=== PATIENT | male | born 1940 | race Caucasian/White ===

== ENCOUNTER 2023-05-24 17:05 | Inpatient (IN) | payer OTHER ==
[~2023-05-24] VITALS: Ht 188 cm; Wt 145.6 kg
[2023-05-24 17:07] VITALS: BP 129/80; PULSE 88; RESP 18; TEMP 100; O2SAT 97
[2023-05-24 18:25] LABS: ANION GAP 13.3 (8-16); BASOPHILS % (AUTO) 0.2 % (0.0-2.0); CALCIUM 8.4 mg/dL (8.5-10.1); CARBON DIOXIDE 27.8 mmol/L (21-32); CHLORIDE 91 mmol/L (98-107); GLUCOSE 113 mg/dL (74-106); HEMATOCRIT 42.8 % (36-52); HEMOGLOBIN 14.6 g/dL (12.0-18.0); LYMPHOCYTES # (AUTO) 0.7 K/uL (2.0-11.5); LYMPHOCYTES % (AUTO) 7.1 % (20.5-51.1); MEAN CORPUSCULAR HEMOGLOBIN 32 pg (27-31); MEAN CORPUSCULAR HGB CONC 34 g/dL (33-37); MEAN CORPUSCULAR VOLUME 93.3 fL (80-94); MONOCYTES % (AUTO) 10.3 % (1.7-9.3); NEUTROPHILS # (AUTO) 7.6 K/uL (1.8-7.7); NEUTROPHILS % (AUTO) 82.4 % (42.2-75.2); PLATELET COUNT (AUTO) 162 K/uL (140-450); POTASSIUM 4.1 mmol/L (3.5-5.1); RED BLOOD CELL COUNT(AUTO) 4.59 MIL/uL (4.20-6.10); RED CELL DISTRIBUTION WIDTH 13.6 % (11.6-13.7); SODIUM SERUM 128 mmol/L (136-145); UREA NITROGEN, BLOOD 19 mg/dL (7-18); WHITE BLOOD COUNT (AUTO) 9.3 K/uL (4.8-10.8)
[2023-05-24 18:25] LABS: FLU A ANTIGEN negative (NEGATIVE); FLU B ANTIGEN negative (NEGATIVE)
[2023-05-24 18:27] LABS: INR 1.29 (0.8-1.2); PARTIAL THROMBOPLASTIN TIME 32.5 secs (22-35.6); PROTHROMBIN TIME 13.3 secs (10.8-13.4)
[2023-05-24 18:32] LABS: ALANINE AMINOTRANSFERASE 104 U/L (12-78); ALBUMIN 2.6 g/dL (3.4-5.0); ALKALINE PHOSPHATASE 69 U/L (50-136); ASPARTATE AMINOTRANSFERASE 96 U/L (15-37); BILIRUBIN,DIRECT 0.4 mg/dL (0.0-0.3); TOTAL PROTEIN, SERUM 6.6 g/dL (6.4-8.2)
[2023-05-24] MEDS: IPRATROPIUM 0.02% 0.5 MG/2.5 ML NEBU INH ONE (19:01)
[2023-05-24] MEDS: ALBUTEROL 0.083% 2.5 MG/3 ML NEBU INH ONE (19:01)
[2023-05-24 19:02] VITALS: PULSE 85; PULSE 86; RESP 16; O2SAT 28; O2SAT 96; O2SAT 99
[2023-05-24] MEDS: ASPIRIN 325 MG TAB PO ONE (19:03)
[2023-05-24] MEDS: LEVOFLOXACIN 750 MG/D5W PREMIX 150 ML IV ONE (19:07)
[2023-05-24] MEDS ORDERED: VANCOMYCIN 1,000 MG VIAL ONE ×2 (19:52→19:58)
[2023-05-24] MEDS: NACL 0.9% 1,000 ML IV ONE (21:16)
[2023-05-24] MEDS: VANCOMYCIN 1,000 MG in DEXTROSE 5% 250 ML IV ONE (21:17)
[2023-05-24] MEDS ORDERED: ROSU10TA1 PO (21:50)
[2023-05-24] MEDS ORDERED: METO-744 PO (21:50)
[2023-05-24] MEDS ORDERED: ATOR10TA PO (21:50)
[2023-05-24] MEDS ORDERED: INDO-323 PO (21:50)
[2023-05-24] MEDS ORDERED: BENA20TA PO (21:50)
[2023-05-25] VITALS (12 sets, daily range): BP systolic 136–156; BP diastolic 62–74; PULSE 68–95; RESP 18–22; TEMP 96.7–98.6; O2SAT 94–99
[2023-05-25] MEDS ORDERED: MORPHINE SULFATE 4 MG/ML SYR IVP PRN ×2 (00:40→00:45)
[2023-05-25] MEDS ORDERED: ONDANSETRON 4 MG/2 ML VIAL IVP PRN (00:40)
[2023-05-25] MEDS ORDERED: POTASSIUM CHLORIDE 10 MEQ TABER PO PRN ×2 (00:40→00:45)
[2023-05-25] MEDS ORDERED: HYDROcodone/APAP 5/325 MG 1 TAB TAB PO PRN ×2 (00:40→00:45)
[2023-05-25] MEDS ORDERED: ACETAMINOPHEN 325 MG TAB PO PRN ×2 (00:40→00:45)
[2023-05-25] MEDS ORDERED: MAG SULF 2000 MG/WATER PREMIX 50 ML IV PRN ×2 (00:40→00:45)
[2023-05-25] MEDS ORDERED: LEVOFLOXACIN 500 MG/D5W PREMIX 100 ML IV SCH (00:45)
[2023-05-25] MEDS: traZODone 50 MG TAB PO ONE (00:57)
[2023-05-25] MEDS ORDERED: ALBUTEROL SULFATE/IPRATROPIU 3 ML SOL IH SCH (01:00)
[2023-05-25] MEDS: ALBUTEROL SULFATE/IPRATROPIU 3 ML SOL IH SCH (02:46)
[2023-05-25 03:15] LABS: APPEARANCE,URINE SL CLOUDY (CLEAR); BILIRUBIN,URINE 1+ (NEGATIVE); BLOOD, URINE 1+ (NEGATIVE); COLOR,URINE YELLOW (YELLOW); LEUKOCYTE ESTERASE ,URINE NEGATIVE (NEGATIVE); NITRITE, URINE NEGATIVE (NEGATIVE); PROTEIN,URINE 2+ (NEGATIVE); UGLUCOSE NEGATIVE (NEGATIVE)
[2023-05-25 03:20] LABS: ICTOTEST POSITIVE (NEGATIVE)
[2023-05-25 03:21] LABS: BACTERIA,URINE 2+ /HPF (None Seen); MUCUS,URINE None Seen /LPF (None Seen); SQUAMOUS EPITHELIAL CELL,UR 0-3 (FEW) /LPF (0-3 (FEW)); WBC,URINE 0 /HPF (0-5)
[2023-05-25] MEDS: NACL 0.9% 1,000 ML IV ONE (03:42)
[2023-05-25] MEDS: hePARIN / DEXT 5% PREMIX 250 ML IV SCH (08:15)
[2023-05-25] MEDS ORDERED: HEPARIN PER PHARMACY MC SCH (09:00)
[2023-05-25] MEDS: HEPARIN PER PHARMACY MC SCH (09:00)
[2023-05-25] MEDS: BENZONATATE 100 MG CAPLF PO PRN (21:10)
[2023-05-25] MEDS: LEVOFLOXACIN 500 MG/D5W PREMIX 100 ML IV SCH (21:11)
[2023-05-25] MEDS: guaiFENesin 20 MG/ML UDC PO PRN (23:35)
[2023-05-25] MEDS: MELATONIN 3 MG TAB PO PRN (23:36)
[2023-05-26] VITALS (11 sets, daily range): BP systolic 132–150; BP diastolic 61–72; PULSE 62–89; RESP 18–22; TEMP 97.6–98.9; O2SAT 93–97
[2023-05-26 06:58] LABS: BASOPHILS % (AUTO) 0.3 % (0.0-2.0); EOSINOPHILS # (AUTO) 0.1 K/uL (0-0.4); EOSINOPHILS % (AUTO) 1.7 % (0.0-4.0); HEMATOCRIT 39.6 % (36-52); HEMOGLOBIN 13.3 g/dL (12.0-18.0); LYMPHOCYTES # (AUTO) 1.3 K/uL (2.0-11.5); LYMPHOCYTES % (AUTO) 17.4 % (20.5-51.1); MEAN CORPUSCULAR HEMOGLOBIN 31 pg (27-31); MEAN CORPUSCULAR HGB CONC 34 g/dL (33-37); MEAN CORPUSCULAR VOLUME 93.3 fL (80-94); MONOCYTES # (AUTO) 0.7 K/uL (0.8-1.0); MONOCYTES % (AUTO) 10.1 % (1.7-9.3); NEUTROPHILS # (AUTO) 5.1 K/uL (1.8-7.7); NEUTROPHILS % (AUTO) 70.5 % (42.2-75.2); PLATELET COUNT (AUTO) 184 K/uL (140-450); RED BLOOD CELL COUNT(AUTO) 4.24 MIL/uL (4.20-6.10); RED CELL DISTRIBUTION WIDTH 13.9 % (11.6-13.7); WHITE BLOOD COUNT (AUTO) 7.2 K/uL (4.8-10.8)
[2023-05-26 07:04] LABS: ANION GAP 8.8 (8-16); CALCIUM 8.5 mg/dL (8.5-10.1); CARBON DIOXIDE 30.4 mmol/L (21-32); CHLORIDE 96 mmol/L (98-107); CREATININE 0.8 mg/dL (0.6-1.3); GLUCOSE 122 mg/dL (74-106); POTASSIUM 4.2 mmol/L (3.5-5.1); SODIUM SERUM 131 mmol/L (136-145); UREA NITROGEN, BLOOD 16 mg/dL (7-18)
[2023-05-26] MEDS: ECOTRIN 81 MG TABEC PO SCH (16:42)
[2023-05-26] MEDS: ATORVASTATIN 20 MG TAB PO SCH (16:43)
[2023-05-26] MEDS: CLOPIDOGREL 75 MG TAB PO SCH (16:43)
[2023-05-26] MEDS ORDERED: DEXTROSE 50% 50 ML SYR IVP PRN (19:40)
[2023-05-26] MEDS: BLOOD GLUCOSE MONITORING 1 DEV DEV FS SCH (20:54)
[2023-05-26] MEDS: METOPROLOL 25 MG TAB PO SCH (20:55)
[2023-05-27] VITALS (8 sets, daily range): BP systolic 128–162; BP diastolic 55–85; PULSE 65–72; RESP 18–22; TEMP 97.3–97.7; O2SAT 91–100
[2023-05-27] MEDS: ONDANSETRON 4 MG/2 ML VIAL IVP PRN (01:27)
[2023-05-27 06:54] LABS: BASOPHILS % (AUTO) 0.2 % (0.0-2.0); EOSINOPHILS # (AUTO) 0.1 K/uL (0-0.4); EOSINOPHILS % (AUTO) 1.7 % (0.0-4.0); HEMATOCRIT 40.1 % (36-52); HEMOGLOBIN 13.7 g/dL (12.0-18.0); LYMPHOCYTES # (AUTO) 1.2 K/uL (2.0-11.5); LYMPHOCYTES % (AUTO) 17.5 % (20.5-51.1); MEAN CORPUSCULAR HEMOGLOBIN 32 pg (27-31); MEAN CORPUSCULAR HGB CONC 34 g/dL (33-37); MEAN CORPUSCULAR VOLUME 92.1 fL (80-94); MONOCYTES # (AUTO) 0.7 K/uL (0.8-1.0); NEUTROPHILS # (AUTO) 4.7 K/uL (1.8-7.7); NEUTROPHILS % (AUTO) 69.6 % (42.2-75.2); PLATELET COUNT (AUTO) 220 K/uL (140-450); RED BLOOD CELL COUNT(AUTO) 4.35 MIL/uL (4.20-6.10); RED CELL DISTRIBUTION WIDTH 13.8 % (11.6-13.7); WHITE BLOOD COUNT (AUTO) 6.7 K/uL (4.8-10.8)
[2023-05-27 07:29] LABS: ANION GAP 8.6 (8-16); CARBON DIOXIDE 34.7 mmol/L (21-32); CHLORIDE 96 mmol/L (98-107); CREATININE 0.8 mg/dL (0.6-1.3); GLUCOSE 111 mg/dL (74-106); POTASSIUM 4.3 mmol/L (3.5-5.1); SODIUM SERUM 135 mmol/L (136-145); UREA NITROGEN, BLOOD 15 mg/dL (7-18)
[2023-05-27] MEDS: LOSARTAN 25 MG TAB PO SCH (08:26)
[2023-05-28] VITALS (8 sets, daily range): BP systolic 134–156; BP diastolic 59–70; PULSE 60–90; RESP 18–22; TEMP 97.1–97.8; O2SAT 91–100
[2023-05-28] MEDS: BENZONATATE 100 MG CAPLF PO PRN (05:19)
[2023-05-28 06:54] LABS: BASOPHILS % (AUTO) 0.2 % (0.0-2.0); EOSINOPHILS # (AUTO) 0.2 K/uL (0-0.4); EOSINOPHILS % (AUTO) 3.5 % (0.0-4.0); HEMATOCRIT 39.6 % (36-52); HEMOGLOBIN 13.3 g/dL (12.0-18.0); LYMPHOCYTES # (AUTO) 1.6 K/uL (2.0-11.5); LYMPHOCYTES % (AUTO) 23.4 % (20.5-51.1); MEAN CORPUSCULAR HEMOGLOBIN 31 pg (27-31); MEAN CORPUSCULAR HGB CONC 34 g/dL (33-37); MEAN CORPUSCULAR VOLUME 93.3 fL (80-94); MONOCYTES # (AUTO) 0.7 K/uL (0.8-1.0); MONOCYTES % (AUTO) 10.4 % (1.7-9.3); NEUTROPHILS # (AUTO) 4.4 K/uL (1.8-7.7); NEUTROPHILS % (AUTO) 62.5 % (42.2-75.2); PLATELET COUNT (AUTO) 251 K/uL (140-450); RED BLOOD CELL COUNT(AUTO) 4.24 MIL/uL (4.20-6.10); RED CELL DISTRIBUTION WIDTH 13.7 % (11.6-13.7)
[2023-05-28 06:57] LABS: ANION GAP 6.2 (8-16); CARBON DIOXIDE 37.9 mmol/L (21-32); CHLORIDE 95 mmol/L (98-107); CREATININE 0.9 mg/dL (0.6-1.3); POTASSIUM 4.1 mmol/L (3.5-5.1); SODIUM SERUM 135 mmol/L (136-145)
[2023-05-28 07:25] LABS: GLUCOSE 100 mg/dL (74-106); UREA NITROGEN, BLOOD 16 mg/dL (7-18)
[2023-05-28] MEDS ORDERED: METO25TA PO (17:11)
[2023-05-28] MEDS ORDERED: CLOP75TA55 PO (17:11)
[2023-05-28] MEDS ORDERED: ASPI-1856 PO (17:11)
[2023-05-28] MEDS ORDERED: BENZ100C6 PO (17:11)
[2023-05-28] MEDS ORDERED: LEVO-481 PO (17:11)
[2023-05-29] VITALS (8 sets, daily range): BP systolic 142–156; BP diastolic 57–69; PULSE 54–69; RESP 19–24; TEMP 96.7–97.7; O2SAT 94–97
[2023-05-29 06:58] LABS: BASOPHILS % (AUTO) 0.4 % (0.0-2.0); EOSINOPHILS # (AUTO) 0.3 K/uL (0-0.4); EOSINOPHILS % (AUTO) 4.1 % (0.0-4.0); HEMATOCRIT 41.5 % (36-52); HEMOGLOBIN 14.2 g/dL (12.0-18.0); LYMPHOCYTES # (AUTO) 2.2 K/uL (2.0-11.5); LYMPHOCYTES % (AUTO) 29.6 % (20.5-51.1); MEAN CORPUSCULAR HEMOGLOBIN 32 pg (27-31); MEAN CORPUSCULAR HGB CONC 34 g/dL (33-37); MEAN CORPUSCULAR VOLUME 93.2 fL (80-94); MONOCYTES # (AUTO) 0.7 K/uL (0.8-1.0); MONOCYTES % (AUTO) 9.2 % (1.7-9.3); NEUTROPHILS # (AUTO) 4.2 K/uL (1.8-7.7); NEUTROPHILS % (AUTO) 56.7 % (42.2-75.2); PLATELET COUNT (AUTO) 281 K/uL (140-450); RED BLOOD CELL COUNT(AUTO) 4.45 MIL/uL (4.20-6.10); RED CELL DISTRIBUTION WIDTH 13.8 % (11.6-13.7); WHITE BLOOD COUNT (AUTO) 7.4 K/uL (4.8-10.8)
[2023-05-29 07:11] LABS: CALCIUM 9.4 mg/dL (8.5-10.1); CARBON DIOXIDE 39.2 mmol/L (21-32); CHLORIDE 96 mmol/L (98-107); CREATININE 0.8 mg/dL (0.6-1.3); GLUCOSE 103 mg/dL (74-106); POTASSIUM 4.2 mmol/L (3.5-5.1); SODIUM SERUM 136 mmol/L (136-145); UREA NITROGEN, BLOOD 15 mg/dL (7-18)
[2023-05-29] MEDS: hydrALAZINE 20 MG/ML VIAL ONE (09:01)
== END 2023-05-29 20:05 | disposition home or self-care (01) | DRG 871 ==
LOC: MED 17:05 → MTU 05-25 00:43 → MED 05-25 00:43 → MTU 05-25 05:56
PROVIDERS: ADMIT Hospitalist; ATTEND Hospitalist
DX: A41.9 Sepsis, unspecified organism (principal); I21.4 Non-ST elevation (NSTEMI) myocardial infarction; J15.69 Pneumonia due to other Gram-negative bacteria; I25.10 Atherosclerotic heart disease of native coronary artery without angina pectoris; Z20.822 Contact with and (suspected) exposure to COVID-19; E78.5 Hyperlipidemia, unspecified; E11.9 Type 2 diabetes mellitus without complications; I11.0 Hypertensive heart disease with heart failure; I50.9 Heart failure, unspecified; Z79.899 Other long term (current) drug therapy
CPT/HCPCS: 36415; 71045; 80048; 80076; 81001; 82948; 83605; 83690; 83735; 83880; 84484; 85025; 85610; 85730; 87040; 87081; 87086; 93005; 94640; 96365; 96375; 97110; 97116; 97163-GP; 97530; 99291; J0360; J0696; J1644; J1956; J2405; J3370; J7060; J7613; J7644; Q0092